=== PATIENT | female | born 1980 | race Two or more races ===

== ENCOUNTER 2016-12-19 20:41 | Emergency (ER) | payer MEDICAID ==
[~2016-12-19] VITALS: Ht 160 cm; Wt 115.7 kg
[2016-12-19 21:15] LABS: Urine Bilirubin Negative (Negative); Urine Blood Negative /uL (Negative); Urine Color Yellow (Yellow); Urine Glucose Normal (Normal); Urine Ketone Negative (Negative); Urine Nitrite Negative (Negative); Urine RBC 1 /hpf (0 - 4); Urine Squamous Epithelial Cell FEW /hpf (<5); Urine Urobilinogen Normal (Negative)
[2016-12-19 22:28] LABS: Basophils # (auto) 0.1 uL; Basophils % (auto) 0.9 % (0.0-2.0); Eosinophils # (auto) 0.1 uL; Hematocrit 38.8 % (36.0-46.0); Hemoglobin 12.9 g/dL (12.2-16.2); Lymphocytes # (auto) 3.1 uL; Lymphocytes % (auto) 36.2 % (10.0-50.0); Mean Corpuscular Hemoglobin 29.7 pg (28.0-32.0); Mean Corpuscular Hgb Conc. 33.3 g/dL (32.0-36.0); Mean Corpuscular Volume 89.3 fL (80.0-100.0); Mean Platelet Volume 8.6 fL (6.9-10.8); Monocytes # (auto) 0.6 uL; Monocytes % (auto) 7.2 % (0.0-12.0); Neutrophils # (auto) 4.7 uL; Neutrophils % (auto) 54.7 % (37.0-80.0); Platelet Count (auto) 274 10^3/uL (140-450); White Blood Cell 8.6 10^3/uL (4.4-10.8)
[2016-12-19 22:45] LABS: INR 0.92 (0.9-1.15); Partial Thromboplastin Time 25.3 sec (22.64-33.71)
[2016-12-19 22:49] LABS: Albumin 3.3 g/dL (3.4-5.0); BUN/Creatinine Ratio 15.3; Calcium 8.4 mg/dL (8.5-10.1); Potassium 4.1 mmol/L (3.5-5.1)
[2016-12-19 22:52] LABS: Bilirubin, Total 0.2 mg/dL (0.2-1.0)
[2016-12-20] MEDS ORDERED: HYDROcodone-ACET 10/325MG TAB PO ONE (01:00)
[2016-12-20] MEDS ORDERED: KETOROLAC TROMETH 60MG/2ML VIAL IM ONE (01:00)
[2016-12-20 01:33] VITALS: BP 103/59
== END 2016-12-20 01:39 | disposition home or self-care (01) ==
LOC: ER 20:41 → EDBD 20:41 → ER 12-20 01:39
DX: K59.00 Constipation, unspecified (principal); R10.84 Generalized abdominal pain; Z90.710 Acquired absence of both cervix and uterus
CPT/HCPCS: 36415; 74176; 80053; 81001; 81025; 82150; 83690; 84702; 85025; 85610; 85730; 96372; 99285; J1885